=== PATIENT | female | born 1945 | race Caucasian/White ===

== ENCOUNTER → 2016-06-07 | Outpatient (CLI) | payer MEDICARE, BC ==
[2016-06-07 15:18] LABS: PROTHROMBIN TIME 25.5 SEC (11.4-15.4)
== END ==
LOC: OD 14:22
PROVIDERS: ATTEND Specialist
DX: I36.1 Nonrheumatic tricuspid (valve) insufficiency (principal); Z79.01 Long term (current) use of anticoagulants
CPT/HCPCS: 36415; 85610

== ENCOUNTER → 2016-07-05 | Outpatient (CLI) | payer MEDICARE, BC ==
[2016-07-05 15:18] LABS: PROTHROMBIN TIME 27.1 SEC (11.4-15.4)
== END ==
LOC: OD 13:47
PROVIDERS: ATTEND Specialist
DX: I36.1 Nonrheumatic tricuspid (valve) insufficiency (principal); Z79.01 Long term (current) use of anticoagulants
CPT/HCPCS: 36415; 85610

== ENCOUNTER → 2016-07-29 | Outpatient (CLI) | payer MEDICARE, BC ==
[2016-07-29 14:33] LABS: PROTHROMBIN TIME 30.7 SEC (11.4-15.4)
== END ==
LOC: OD 12:05
PROVIDERS: ATTEND Specialist
DX: I36.1 Nonrheumatic tricuspid (valve) insufficiency (principal); Z79.01 Long term (current) use of anticoagulants
CPT/HCPCS: 36415; 85610

== ENCOUNTER → 2016-08-24 | Outpatient (CLI) | payer MEDICARE, BC ==
[2016-08-24 18:32] LABS: PROTHROMBIN TIME 45.1 SEC (11.4-15.4)
== END ==
LOC: OD 14:36
PROVIDERS: ATTEND Specialist
DX: I36.1 Nonrheumatic tricuspid (valve) insufficiency (principal); Z79.01 Long term (current) use of anticoagulants
CPT/HCPCS: 36415; 85610

== ENCOUNTER → 2016-09-03 | Outpatient (CLI) | payer MEDICARE, BC ==
[2016-09-03 17:47] LABS: PROTHROMBIN TIME 17.4 SEC (11.4-15.4)
== END ==
LOC: LAB 17:13
PROVIDERS: ATTEND Specialist
DX: I36.1 Nonrheumatic tricuspid (valve) insufficiency (principal); Z79.01 Long term (current) use of anticoagulants
CPT/HCPCS: 36415; 85610

== ENCOUNTER → 2016-09-13 | Outpatient (CLI) | payer MEDICARE, BC ==
[2016-09-13 14:06] LABS: PROTHROMBIN TIME 13.4 SEC (11.4-15.4)
== END ==
LOC: OD 13:00
PROVIDERS: ATTEND Specialist
DX: Z79.01 Long term (current) use of anticoagulants (principal); I36.1 Nonrheumatic tricuspid (valve) insufficiency
CPT/HCPCS: 36415; 85610

== ENCOUNTER → 2016-09-23 | Outpatient (CLI) | payer MEDICARE, BC ==
[2016-09-23 15:07] LABS: PROTHROMBIN TIME 36.2 SEC (11.4-15.4)
== END ==
LOC: OD 13:59
PROVIDERS: ATTEND Specialist
DX: I36.1 Nonrheumatic tricuspid (valve) insufficiency (principal); Z79.01 Long term (current) use of anticoagulants
CPT/HCPCS: 36415; 85610

== ENCOUNTER → 2016-10-01 | Outpatient (CLI) | payer MEDICARE, BC ==
[2016-10-01 16:45] LABS: PROTHROMBIN TIME 23.1 SEC (11.4-15.4)
== END ==
LOC: OD 14:40
PROVIDERS: ATTEND Specialist
DX: Z79.01 Long term (current) use of anticoagulants (principal); Z51.81 Encounter for therapeutic drug level monitoring; I36.1 Nonrheumatic tricuspid (valve) insufficiency
CPT/HCPCS: 36415; 85610

== ENCOUNTER → 2016-11-05 | Outpatient (CLI) | payer MEDICARE, BC ==
[2016-11-05 17:23] LABS: PROTHROMBIN TIME 17.5 SEC (11.4-15.4)
== END ==
LOC: OD 15:28
PROVIDERS: ATTEND Specialist
DX: Z79.01 Long term (current) use of anticoagulants (principal); I36.1 Nonrheumatic tricuspid (valve) insufficiency
CPT/HCPCS: 36415; 85610

== ENCOUNTER → 2016-11-26 | Outpatient (CLI) | payer MEDICARE, BC | LOC: OD 16:02 | PROVIDERS: ATTEND Specialist | DX: I36.1 Nonrheumatic tricuspid (valve) insufficiency (principal); Z79.01 Long term (current) use of anticoagulants | CPT/HCPCS: 36415; 85610 ==

== ENCOUNTER → 2017-01-20 | Outpatient (CLI) | payer MEDICARE, BC ==
[2017-01-20 12:28] LABS: PROTHROMBIN TIME 18.3 SEC (11.4-15.4)
[2017-01-21 13:10] LABS: ALANINE AMINOTRANSFERASE 25 U/L (9-52); ALBUMIN 4.6 g/dL (3.5-5.0); ALKALINE PHOSPHATASE 97 U/L (38-126); ANION GAP 12 (5-19); ASPARTATE AMINO TRANSFERASE 21 U/L (14-36); BILIRUBIN,DIRECT 0.3 mg/dL (0.0-0.4); BILIRUBIN,TOTAL 0.9 mg/dL (0.2-1.3); BLOOD UREA NITROGEN 22 mg/dL (7-20); CALCIUM 10.3 mg/dL (8.4-10.2); CARBON DIOXIDE 24 mmol/L (22-30); CHLORIDE 105 mmol/L (98-107); CHOLESTEROL 307.26 mg/dL (0-200); CREATININE RESULT 0.79 mg/dL (0.52-1.25); Direct HDL 85 mg/dL (>40); GLUCOSE 105 mg/dL (75-110); POTASSIUM 4.6 mmol/L (3.6-5.0); SODIUM 141.1 mmol/L (137-145); TOTAL PROTEIN 7.3 g/dL (6.3-8.2); TRIGLYCERIDES 119 mg/dL (<150)
[2017-01-21 13:21] LABS: DIRECT LDL 220 mg/dL (<100)
== END ==
LOC: OD 11:44
PROVIDERS: ATTEND Specialist
DX: R94.31 Abnormal electrocardiogram [ECG] [EKG] (principal); E78.5 Hyperlipidemia, unspecified; I25.2 Old myocardial infarction; I34.9 Nonrheumatic mitral valve disorder, unspecified; I36.1 Nonrheumatic tricuspid (valve) insufficiency; I51.3 Intracardiac thrombosis, not elsewhere classified; R01.1 Cardiac murmur, unspecified; F90.9 Attention-deficit hyperactivity disorder, unspecified type; Z79.01 Long term (current) use of anticoagulants; Z79.899 Other long term (current) drug therapy
CPT/HCPCS: 36415; 80053; 80061; 85610; 85730

== ENCOUNTER → 2017-01-31 | Outpatient (CLI) | payer MEDICARE, BC ==
[2017-01-31 17:30] LABS: PROTHROMBIN TIME 19.8 SEC (11.4-15.4)
== END ==
LOC: OD 15:56
PROVIDERS: ATTEND Specialist
DX: Z79.01 Long term (current) use of anticoagulants (principal)
CPT/HCPCS: 36415; 85610

== ENCOUNTER → 2017-02-11 | Outpatient (CLI) | payer MEDICARE, BC ==
[2017-02-11 15:39] LABS: PROTHROMBIN TIME 31.3 SEC (11.4-15.4)
== END ==
LOC: OD 14:47
PROVIDERS: ATTEND Specialist
DX: Z79.01 Long term (current) use of anticoagulants (principal)
CPT/HCPCS: 36415; 85610

== ENCOUNTER → 2017-03-03 | Outpatient (CLI) | payer MEDICARE, BC ==
[2017-03-03 12:42] LABS: PROTHROMBIN TIME 31.8 SEC (11.4-15.4)
== END ==
LOC: OD 10:43
PROVIDERS: ATTEND Specialist
DX: Z79.01 Long term (current) use of anticoagulants (principal)
CPT/HCPCS: 36415; 85610

== ENCOUNTER → 2017-04-11 | Outpatient (CLI) | payer MEDICARE, BC | LOC: OD 13:33 | PROVIDERS: ATTEND Specialist | DX: K55.059 Acute (reversible) ischemia of intestine, part and extent unspecified (principal); Z79.01 Long term (current) use of anticoagulants | CPT/HCPCS: 36415; 85610 ==

== ENCOUNTER → 2017-04-27 | Outpatient (CLI) | payer MEDICARE, BC ==
[2017-04-27 16:15] LABS: INTERNATIONAL RATION (INR) 1.61; PROTHROMBIN TIME 20.1 SEC (11.4-15.4)
== END ==
LOC: OD 14:37
PROVIDERS: ATTEND Specialist
DX: I51.3 Intracardiac thrombosis, not elsewhere classified (principal); Z79.01 Long term (current) use of anticoagulants
CPT/HCPCS: 36415; 85610

== ENCOUNTER → 2017-05-12 | Outpatient (CLI) | payer MEDICARE, BC ==
[2017-05-12 14:21] LABS: INTERNATIONAL RATION (INR) 2.14; PROTHROMBIN TIME 25.1 SEC (11.4-15.4)
== END ==
LOC: OD 12:47
PROVIDERS: ATTEND Specialist
DX: Z51.81 Encounter for therapeutic drug level monitoring (principal); Z79.01 Long term (current) use of anticoagulants
CPT/HCPCS: 36415; 85610

== ENCOUNTER → 2017-05-31 | Outpatient (CLI) | payer MEDICARE, BC ==
[2017-05-31 16:45] LABS: INTERNATIONAL RATION (INR) 1.28; PROTHROMBIN TIME 16.9 SEC (11.4-15.4)
== END ==
LOC: OD 16:10
PROVIDERS: ATTEND Specialist
DX: I51.3 Intracardiac thrombosis, not elsewhere classified (principal); Z79.01 Long term (current) use of anticoagulants
CPT/HCPCS: 36415; 85610

== ENCOUNTER → 2017-06-01 | Outpatient (CLI) | payer MEDICARE, BC ==
--- NOTE | 2017-06-02 08:11 | XCELERA REPORT ---
[address] [address] Upper Extremity Venous Evaluation Name: KASSIDY ALEGRIA Age: 71 yrs Gender: Female : 1945 Patient Status: Outpatient Patient Location: Study Date: 06/01/2017 02:46 PM Procedure: Unilateral duplex scan of the left upper extremity veins was performed, including responses to compression and other maneuvers. Reason For Study: LUE FACIAL SWELLING PAIN M79.602 Ordering Physician: DEMETRIA MIRAMONTES Performed By: Bonnie Watson Left Sided Venous Evaluation Normal vessel filling wall to wall, compression and augmentation as well as Colour flow down to the forearm veins. The Internal Jugular vein, in specific, is normal. Interpretation Summary No duplex evidence of DVT or obstruction in the left upper extremity. : DEMETRIA MIRAMONTES > Ezekiel Olmos
== END ==
LOC: SP 14:23
PROVIDERS: ATTEND Specialist
DX: M79.602 Pain in left arm (principal)
CPT/HCPCS: 93971

== ENCOUNTER → 2017-06-01 | Outpatient (CLI) | payer MEDICARE, BC ==
[2017-06-01 18:21] LABS: HEMATOCRIT 48.2 % (36.0-47.0); HEMOGLOBIN 16.3 g/dL (12.0-15.5); MEAN CORPUSCULAR HEMOGLOBIN 30.4 pg (27.0-33.4); MEAN CORPUSCULAR HGB CONC 33.8 g/dL (32.0-36.0); MEAN CORPUSCULAR VOLUME 90 fl (80-97); PLATELET COUNT 299 10^3/uL (150-450); RED BLOOD COUNT 5.36 10^6/uL (3.72-5.28); RED CELL DISTRIBUTION WIDTH 14.2 % (11.5-14.0)
[2017-06-01 18:52] LABS: ALANINE AMINOTRANSFERASE 29 U/L (9-52); ALBUMIN 5.5 g/dL (3.5-5.0); ALKALINE PHOSPHATASE 105 U/L (38-126); ANION GAP 18 (5-19); ASPARTATE AMINO TRANSFERASE 28 U/L (14-36); BILIRUBIN,DIRECT 0.3 mg/dL (0.0-0.4); BILIRUBIN,TOTAL 0.5 mg/dL (0.2-1.3); BLOOD UREA NITROGEN 8 mg/dL (7-20); CALCIUM 10.7 mg/dL (8.4-10.2); CARBON DIOXIDE 26 mmol/L (22-30); CHLORIDE 107 mmol/L (98-107); GLUCOSE 83 mg/dL (75-110); MAGNESIUM 2.4 mg/dL (1.6-2.3); POTASSIUM 4.5 mmol/L (3.6-5.0); SODIUM 150.7 mmol/L (137-145); TOTAL PROTEIN 8.4 g/dL (6.3-8.2)
== END ==
LOC: OD 16:27
PROVIDERS: ATTEND Specialist
DX: I82.C12 Acute embolism and thrombosis of left internal jugular vein (principal); Z79.01 Long term (current) use of anticoagulants
CPT/HCPCS: 36415; 80048; 80076; 83735; 85027

== ENCOUNTER 2018-03-08 11:45 | Day surgery (SDC) | payer MEDICARE, BC ==
[~2018-03-08 11:45] MED LIST: KETOROLAC TROMETHAMINE 0.45% 4 DROP/0.4 ML DROPERETTE OD PRN; MIDAZOLAM 2 MG/2 ML INJ ONE
[2018-03-08] MEDS: TETRACAINE HCL 0.5% OPH SOLN 0.6 ML DROPERETTE OD PRN ×4 (12:53→13:19)
[2018-03-08] MEDS: TROPICAMIDE 1% OPH SOLN 3 ML OD PRN ×3 (12:54→13:14)
[2018-03-08] MEDS: CYCLOPENTOLATE 0.2%/PHENYLEPHRINE 1% OPH SOLN 2 ML OD PRN ×3 (12:54→13:14)
[2018-03-08] MEDS: BESIFLOXACIN HCL 0.6% OPH SUSP 5 ML BOTTLE OD PRN ×4 (12:55→13:37)
[2018-03-08] MEDS ORDERED: ALBUTEROL SULFATE 0.083% NEB 2.5 MG/3 ML AMPUL NEB ONE (13:03)
[2018-03-08] MEDS: LIDOCAINE 1% INJ-PF (10 MG/ML) 30 ML SDV ONE ×2 (13:17→13:26)
[2018-03-08] MEDS: TOBRAMYCIN SULFATE/DEXAMETH OPH OINTMENT 3.5 GM ONE ×2 (13:22→13:37)
[2018-03-08] MEDS: EPINEPHRINE INJ/PF 1 MG/1 ML AMPULE ONE ×2 (13:24→13:26)
[2018-03-08] MEDS: CHONDR SU A NA/HYALUR INTRAOC KIT (SURGICARE) ONE ×2 (13:26→13:27)
== END 2018-03-08 14:25 | disposition home or self-care (01) ==
LOC: SC 11:45
PROVIDERS: ATTEND Ophthalmology
DX: H25.11 Age-related nuclear cataract, right eye (principal); F17.210 Nicotine dependence, cigarettes, uncomplicated; J45.909 Unspecified asthma, uncomplicated; I49.9 Cardiac arrhythmia, unspecified; Z79.51 Long term (current) use of inhaled steroids; Z79.899 Other long term (current) drug therapy; Z86.73 Personal history of transient ischemic attack (TIA), and cerebral infarction without residual deficits; Z86.718 Personal history of other venous thrombosis and embolism; Z88.6 Allergy status to analgesic agent
CPT/HCPCS: 66984; V2630; J2250; J3490 ×3; A9270 ×2; J0171; 142